=== PATIENT | male | born 1950 | race Caucasian/White ===

== ENCOUNTER 2016-10-19 07:36 | Day surgery (SDC) | payer MEDICARE, OTHER ==
[~2016-10-19] VITALS: Ht 177.8 cm; Wt 91.2 kg
[2016-10-19] MEDS ORDERED: 0.9% Sodium Chloride 1,000 ML IV PRN (07:37)
[2016-10-19] MEDS ORDERED: Sodium Chloride LOK Flush 10 mL Syringe IV PRN (07:40)
[2016-10-19] MEDS ORDERED: fentaNYL-PF 50 mCg/mL 2 mL Inj IVPUSH PRN (07:40)
[2016-10-19 08:00] VITALS: BP 127/82; PULSE 72; RESP 14; O2SAT 96
--- NOTE | 2016-10-19 09:09 | PCM.ENDCOL ---
Colonoscopy Date of Service: Oct 19, 2016 Physician Buddy Wu MD Pre Procedure Diagnosis: Screening colon cancer Post Procedure Dx & Findings: Polyps hemorrhoids diverticula Procedure Colonoscopy Prep adequate Withdrawal 15 minutes PROCEDURE IN DETAIL: After unremarkable rectal examination Olympus video colonoscope was inserted patient's anal canal was advanced to cecum. Landmarks are identified including the ileocecal valve and appendiceal orifice. Scope was withdrawn systematically. The mucosa of the cecum, ascending, transverse, descending, sigmoid, rectal mucosa lined with whitish, pink, smooth, glistening, normal-appearing mucosa, normal fine branching, underlying vascularity, normal haustra. The patient tolerated procedure and was transported to observation area. In the ascending colon, there was a 1 mm polyp which was removed completely using cold forceps. In the transverse colon, there was a 1 mm polyp which was removed completely using cold forcep. There was also a 3 mm polyp in the transverse colon which was removed completely using cold snare. In the descending colon, there were two1 mm polyps which were removed completely using cold forceps. In the sigmoid colon, there was a 2 mm polyp which was removed completely using cold snare. In the rectum there were two 2-3 mm polyps which are removed completely using cold snare. In the rectum retroflexion was done which showed hemorrhoids anal canal was inspected carefully on the way out and hemorrhoids are noted. Impression Polyps 8 status post complete removal Hemorrhoids Diverticuli Recommendation Repeat colonoscopy 3 years Diverticular diet Presedation Assessment Risks and Benefits Informed consent was obtained from the patient after all risks and benefits including but not limited to drug reaction, infection, pain, bleeding, perforation, as well as alternatives were discussed. Patient monitoring Continuous pulse oximetry, cardiac monitoring, blood pressure monitoring, IV access, and oxygen at 2L per nasal cannula. Periprocedural Fentanyl: Fentanyl 100mcg Incrementally Midazolam: Midazolam 5mg Incrementally Complications There were no periprocedural complications identified. Post Procedure Plan Post Procedure Recommendations 1. Restrict activities today. 2. Resume normal activities in the morning. 3. Resume medications. 4. Patient informed of normal post procedure side effects as bloating, drowsiness, blood streaking in the stool. 5. average risk CRCS. If colon polyps come back as: -Hyperplastic- can repeat colonoscopy in 10 years -Tubular adenoma- repeat colonoscopy in 5 years -Tubulovillous/villous adenoma- repeat colonoscopy in 3 years -If any dysplasia- return to clinic as soon as possible 6. Please don't hesitate to call me with any questions. Buddy Wu MD Oct 19, 2016 09:09
[2016-10-19 09:12] VITALS: BP 121/83; PULSE 72; RESP 16; O2SAT 94
[2016-10-19 09:22] VITALS: BP 115/74; PULSE 67; RESP 16; O2SAT 92
[2016-10-19 09:32] VITALS: BP 117/73; PULSE 70; RESP 14; O2SAT 95
--- NOTE | 2016-10-20 11:12 | PATH ---
SURGICAL PATHOLOGY Attending Physician:Buddy Wu M.D. CASE STATUS: Signed Out PATIENT NAME: ARRON BEAVERS PID: [id number] : 1950 DATE COLLECTED:10/19/2016 15:36 SPECIMEN: 1: Colon, Biopsy 2: Colon, Biopsy 3: Colon, Biopsy 4: Colon, Biopsy 5: Rectum, Biopsy CLINICAL HISTORY: 1.ASCENDING COLON POLYP X1 2.TRANSVERSE COLON POLYPS X2 3.DESCENDING COLON POLYP X2 4.SIGMOID COLON POLYP X1 5.RECTAL POLYP X2 FINAL DIAGNOSIS: 1.ASCENDING COLON POLYP: TUBULAR ADENOMA. 2.TRANSVERSE COLON POLYPS: TUBULAR ADENOMA INVOLVING BOTH BIOPSY FRAGMENTS. 3.DESCENDING COLON POLYPS: TUBULAR ADENOMA INVOLVING BOTH BIOPSY FRAGMENTS. 4.SIGMOID COLON POLYP: HYPERPLASTIC POLYP. 5.RECTAL POLYPS: TUBULAR ADENOMA INVOLVING SINGLE BIOPSY FRAGMENT. HYPERPLASTIC POLYP INVOLVING SINGLE BIOPSY FRAGMENT. ICD10 CODE D12.2 GROSS DESCRIPTION: The specimen is received in five formalin filled containers labeled with the patient's name. 1). The specimen is sublabeled "ascending colon polyp" and consists of a 0.3 x 0.2 x 0.2 CM portion of tissue which is entirely submitted in cassette 1A. 2). The specimen is sublabeled "transverse colon polyps" and consists of 2 portions of tissue which aggregate to 0.3 x 0.3 x 0.2 CM. The specimen is entirely submitted in cassette 2A. 3). The specimen is sublabeled "descending colon polyp" and consists of 2 portions of tissue which aggregate to 0.3 x 0.3 x 0.2 CM. The specimen is entirely submitted in cassette 3A. 4). The specimen is sublabeled "sigmoid colon polyp" and consists of a 0.4 x 0.4 x 0.2 CM portion of tissue which is entirely submitted in cassette 4A. 5). The specimen is sublabeled "rectal polyps" and consists of 2 portions of tissue which aggregate to 0.4 x 0.4 x 0.3 CM. The specimen is entirely submitted in cassette 5A. 10/19/2016 DAC MICRO DESCRIPTION: See diagnosis. ICD-9 CODES: CPT CODES: 1: 09186 2: 64727 3: 55877 4: 31180 5: 44203 Electronically Signed Out Lion Chambers MD [facility] [address], [place] [address] Technical component performed at [facility], [address], [place], [address]
== END 2016-10-19 23:59 | disposition home or self-care (01) ==
LOC: END 07:36
PROVIDERS: ATTEND Internal Medicine
DX: Z12.11 Encounter for screening for malignant neoplasm of colon (principal); D12.2 Benign neoplasm of ascending colon; D12.3 Benign neoplasm of transverse colon; D12.4 Benign neoplasm of descending colon; D12.8 Benign neoplasm of rectum; K63.5 Polyp of colon; G47.30 Sleep apnea, unspecified; K21.9 Gastro-esophageal reflux disease without esophagitis; M51.26 Other intervertebral disc displacement, lumbar region; Z85.46 Personal history of malignant neoplasm of prostate; Z87.891 Personal history of nicotine dependence
CPT/HCPCS: 45380; 45385; 88305; 99153; G0500; J2250; J3010; J7030